=== PATIENT | female | born 1970 | race Caucasian/White ===

== ENCOUNTER 2018-04-25 07:22 | Emergency (ER) | payer OTHER ==
[~2018-04-25] VITALS: Ht 170.2 cm; Wt 90.0 kg
[2018-04-25 07:30] VITALS: BP 152/88; PULSE 87; RESP 16; TEMP 98.8; O2SAT 99
[2018-04-25] MEDS ORDERED: LIPI20TA PO (08:11)
[2018-04-25] MEDS ORDERED: PAXI30TA7 PO (08:11)
[2018-04-25] MEDS ORDERED: ZANT150T2 PO (08:11)
[2018-04-25] MEDS ORDERED: SODIUM CHLORIDE 0.9% FLUSH 10 ML FLUSH IVF PRN (09:00)
[2018-04-25] MEDS ORDERED: LIDOCAINE VISCOUS 2% SOLN 15 ML UDC PO ONE (09:15)
[2018-04-25] MEDS ORDERED: ALUMINUM/MAGNESIUM/SIMETH 30 ML CUP PO ONE (09:15)
--- NOTE | 2018-04-25 09:15 | PD ---
HPI Chief Complaint: GI Complaint Time Seen by Provider: 08:04 Travel History International Travel<30 days: No Contact w/Intl Traveler<30days: No Traveled to known affect area: No History of Present Illness HPI Patient is a 47-year-old female with a history of peptic ulcer disease presents emergency department for evaluation of burning epigastric pain for the past few days. She states anytime she swallows something it has sensation of pain in her epigastric area. States pain is moderate, intermittent, worsened with context duration as above PFSH Past Medical History Anxiety: Yes Diminished Hearing: No Tetanus Vaccination: > 5 Years Influenza Vaccination: Yes ?: Not : 3 Para: 3 Miscarriage: 0 : 0 Past Surgical History Surgical History: No Previous Surgery Social History Alcohol Use: No Tobacco Use: Yes (1ppd) Substance Use: No Allergies-Medications (Allergen,Severity, Reaction): Coded Allergies: cefaclor (Verified Allergy, Severe, 04/25/18) cephalexin (Verified Allergy, Severe, 04/25/18) sulfamethoxazole (Verified Allergy, Severe, 04/25/18) trimethoprim (Verified Allergy, Severe, 04/25/18) Reported Meds & Prescriptions Reported Meds & Active Scripts Active Carafate Liq (Sucralfate) 1 Gm/10 Ml Susp 1 Gm PO TID on empty stomach Reported Paxil (Paroxetine HCl) 30 Mg Tab 30 Mg PO DAILY Zantac (Ranitidine HCl) 150 Mg Tab 150 Mg PO DAILY Lipitor (Atorvastatin Calcium) 20 Mg Tab 20 Mg PO HS Review of Systems Except as stated in HPI: all other systems reviewed are Neg Physical Exam Narrative GENERAL: Well-developed well-nourished no obvious distress SKIN: Focused skin assessment warm/dry. HEAD: Atraumatic. Normocephalic. EYES: Pupils equal and round. No scleral icterus. No injection or drainage. ENT: No nasal bleeding or discharge. Mucous membranes pink and moist. NECK: Trachea midline. No JVD. CARDIOVASCULAR: Regular rate and rhythm. No murmur appreciated. RESPIRATORY: No accessory muscle use. Clear to auscultation. Breath sounds equal bilaterally. GASTROINTESTINAL: Abdomen soft, non-tender, nondistended. Hepatic and splenic margins not palpable. No percussive tenderness no rebound tenderness, no chest wall tenderness. MUSCULOSKELETAL: No obvious deformities. No clubbing. No cyanosis. No edema. NEUROLOGICAL: Awake and alert. No obvious cranial nerve deficits. Motor grossly within normal limits. Normal speech. PSYCHIATRIC: Appropriate mood and affect; insight and judgment normal. Data Data Last Documented VS Vital Signs Date Time Temp Pulse Resp B/P (MAP) Pulse Ox O2 Delivery O2 Flow Rate FiO2 04/25/18 11:43 76 20 119/73 (88) 98 04/25/18 09:15 Room Air 04/25/18 07:30 98.8 Orders Orders Electrocardiogram (04/25/18 08:51) Ckmb (Isoenzyme) Profile (04/25/18 08:51) Complete Blood Count With Diff (04/25/18 08:51) Comprehensive Metabolic Panel (04/25/18 08:51) Magnesium (Mg) (04/25/18 08:51) Prothrombin Time / Inr (Pt) (04/25/18 08:51) Act Partial Throm Time (Ptt) (04/25/18 08:51) Troponin I (04/25/18 08:51) Lipase (04/25/18 08:51) Chest, Single Ap (04/25/18 08:51) Ecg Monitoring (04/25/18 08:51) Iv Access Insert/Monitor (04/25/18 08:51) Oximetry (04/25/18 08:51) Oxygen Administration (04/25/18 08:51) Sodium Chloride 0.9% Flush (Ns Flush) (04/25/18 09:00) Al-Mag Hy-Si 40-40-4 Mg/Ml Liq (Mag-Al P (04/25/18 09:15) Lidocaine 2% Viscous (Xylocaine 2% Visco (04/25/18 09:15) Ed Discharge Order (04/25/18 11:18) Labs Laboratory Tests Test 04/25/18 09:00 White Blood Count 12.5 TH/MM3 Red Blood Count 4.59 MIL/MM3 Hemoglobin 14.0 GM/DL Hematocrit 42.2 % Mean Corpuscular Volume 92.0 FL Mean Corpuscular Hemoglobin 30.5 PG Mean Corpuscular Hemoglobin Concent 33.1 % Red Cell Distribution Width 13.8 % Platelet Count 358 TH/MM3 Mean Platelet Volume 8.7 FL Neutrophils (%) (Auto) 61.1 % Lymphocytes (%) (Auto) 30.2 % Monocytes (%) (Auto) 6.8 % Eosinophils (%) (Auto) 1.5 % Basophils (%) (Auto) 0.4 % Neutrophils # (Auto) 7.6 TH/MM3 Lymphocytes # (Auto) 3.8 TH/MM3 Monocytes # (Auto) 0.9 TH/MM3 Eosinophils # (Auto) 0.2 TH/MM3 Basophils # (Auto) 0.1 TH/MM3 CBC Comment DIFF FINAL Differential Comment Prothrombin Time 9.5 SEC Prothromb Time International Ratio 0.9 RATIO Activated Partial Thromboplast Time 30.4 SEC Blood Urea Nitrogen 11 MG/DL Creatinine 0.66 MG/DL Random Glucose 94 MG/DL Total Protein 6.9 GM/DL Albumin 3.4 GM/DL Calcium Level 9.2 MG/DL Magnesium Level 1.9 MG/DL Alkaline Phosphatase 73 U/L Aspartate Amino Transf (AST/SGOT) 14 U/L Alanine Aminotransferase (ALT/SGPT) 23 U/L Total Bilirubin 0.2 MG/DL Sodium Level 141 MEQ/L Potassium Level 3.9 MEQ/L Chloride Level 105 MEQ/L Carbon Dioxide Level 29.2 MEQ/L Anion Gap 7 MEQ/L Estimat Glomerular Filtration Rate 97 ML/MIN Total Creatine Kinase 41 U/L Troponin I LESS THAN 0.02 NG/ML Lipase 161 U/L MDM Medical Decision Making Medical Screen Exam Complete: Yes Emergency Medical Condition: Yes Differential Diagnosis Peptic ulcer disease, pancreatitis, cholecystitis, ACS unlikely, gastritis per Narrative Course Patient room to the emergency department, symptoms suggestive of peptic ulcer disease, initial workup is reassuring, patient has white blood cell count of 12.5 with a normal differential, chemistry negative, EKG is nonischemic and normal. She is beginning to feel little bit better with the GI cocktail, she appears quite comfortable and her exam is benign. Discussed follow-up with her primary care physician or GI doctor when [place]. Discussed that no definitive cause of her epigastric pain is been identified and certainly if she experiences worsening or any new or concerning symptoms she should return to the ER as soon as possible. She is stable for discharge. Diagnosis Primary Impression: Epigastric abdominal pain Med/Other Pt SpecificInfo: Prescription(s) given Scripts Sucralfate Liq (Carafate Liq) 1 Gm/10 Ml Susp 1 GM PO TID for Duodenal ulcer, #900 ML 0 Refills on empty stomach Prov: Herron,Arjun J MD 04/25/18 Disposition: 01 DISCHARGE HOME Condition: Stable Arjun Herron MD April 25, 2018 09:15
[2018-04-25 09:16] VITALS: BP 118/66; PULSE 71; RESP 19
--- NOTE | 2018-04-25 09:23 | RADRPT ---
EXAM DATE: 04/25/2018 9:20 AM EDT AGE/SEX: 47 years / Female INDICATIONS: Chest pain center of chest for two days. CLINICAL DATA: This is the patient's initial encounter. Patient reports that signs and symptoms have been present for 2 days and indicates a pain score of 3/10. MEDICAL/SURGICAL HISTORY: None. None. COMPARISON: No prior [facility] exams available for comparison. FINDINGS: A single AP view of the chest demonstrates the lungs to be symmetrically aerated without evidence of mass, infiltrate or effusion. The cardiomediastinal contours are unremarkable. Osseous structures a re intact. CONCLUSION: No acute cardiopulmonary disease Electronically signed by: Brock Vickers MD 04/25/2018 9:22 AM EDT
[2018-04-25 09:41] LABS: AUTOMATED NEUTROPHIL # 7.6 TH/MM3 (1.8-7.7); BASOPHIL # 0.1 TH/MM3 (0-0.2); BASOPHIL % 0.4 % (0.0-2.0); EOSINOPHIL # 0.2 TH/MM3 (0-0.4); EOSINOPHIL % 1.5 % (0.0-4.0); HEMATOCRIT 42.2 % (35.0-46.0); LYMPH % 30.2 % (9.0-44.0); LYMPHOCYTE # 3.8 TH/MM3 (1.0-4.8); MEAN CORPUSCULAR HEMOGLOBIN 30.5 PG (27.0-34.0); MEAN CORPUSCULAR HGB CONC 33.1 % (32.0-36.0); MEAN PLATELET VOLUME 8.7 FL (7.0-11.0); MONO % 6.8 % (0.0-8.0); MONOCYTE # 0.9 TH/MM3 (0-0.9); NEUT % 61.1 % (16.0-70.0); PLATELET COUNT 358 TH/MM3 (150-450); RED BLOOD COUNT 4.59 MIL/MM3 (4.00-5.30); RED CELL DISTRIBUTION WIDTH 13.8 % (11.6-17.2); WHITE BLOOD COUNT 12.5 TH/MM3 (4.0-11.0)
[2018-04-25 09:55] LABS: INTERNATIONAL NORMALIZED RATIO 0.9 RATIO; PROTHROMBIN TIME - PATIENT 9.5 SEC (9.8-11.6)
[2018-04-25 10:00] LABS: ALBUMIN 3.4 GM/DL (3.4-5.0); AST (GOT) 14 U/L (15-37); BICARBONATE 29.2 MEQ/L (21.0-32.0); BLOOD UREA NITROGEN 11 MG/DL (7-18); CALCIUM 9.2 MG/DL (8.5-10.1); CHLORIDE 105 MEQ/L (98-107); CREATININE 0.66 MG/DL (0.50-1.00); GLOMERULAR FILTRATION RATE 97 ML/MIN (>89); GLUCOSE,RANDOM 94 MG/DL (74-106); MAGNESIUM 1.9 MG/DL (1.5-2.5); SODIUM (NA) 141 MEQ/L (136-145)
[2018-04-25 10:01] LABS: ALT (GPT) 23 U/L (10-53)
[2018-04-25 10:05] LABS: ALKALINE PHOSPHATASE 73 U/L (45-117); TOTAL BILIRUBIN ADULT 0.2 MG/DL (0.2-1.0); TOTAL PROTEIN 6.9 GM/DL (6.4-8.2); TROPONIN I LESS THAN 0.02 NG/ML (0.02-0.05)
[2018-04-25] MEDS ORDERED: CARA1SUS3 PO (11:19)
[2018-04-25 11:43] VITALS: BP 119/73
--- NOTE | 2018-04-26 13:59 | EKG ---
Date Performed: 04/25/2018 Time Performed: 08:12:06 PTAGE: 47 years EKG: Sinus rhythm NORMAL ECG NO PREVIOUS TRACING DOCTOR: Lius Shahid Interpretating Date/Time 04/26/2018 13:58:38
== END 2018-04-25 11:46 | disposition home or self-care (01) ==
LOC: NEPC 07:22
DX: R10.13 Epigastric pain (principal); Z87.11 Personal history of peptic ulcer disease; F41.9 Anxiety disorder, unspecified
CPT/HCPCS: 71045; 80053; 82550; 83690; 83735; 84484; 85025; 85610; 85730; 93005; 99285